=== PATIENT | female | born 1960 | race Hispanic/Latino ===

== ENCOUNTER 2017-03-25 09:57 | Emergency (ER) | payer OTHER, MEDICARE ==
[2017-03-25 09:57] VITALS: BMI 19.1
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
[2017-03-25 10:09] VITALS: O2SAT 95
[2017-03-25] MEDS ORDERED: Morphine 4 mg/ml ISec IVP STA (10:20)
[2017-03-25] MEDS ORDERED: Sodium Chloride 0.9% 1,000 ML IV SCH (10:30)
[2017-03-25 10:36] LABS: BASO # 0.01 K/mm3 (0.0-2.0); BASO % 0.1 % (0.0-3.0); EOS # 0.1 (0.0-0.7); EOS % 1.2 % (1.5-5.0); GRAN # 7.03 (1.4-6.5); GRAN % 76.1 % (50.0-68.0); HEMATOCRIT 34.4 % (36.0-48.0); LYMPH # 1.7 (1.2-3.4); LYMPH % 18.9 % (22.0-35.0); MEAN CELL VOLUME 99.1 fl (80.0-105.0); MEAN CORPUSCULAR HEMOGLOBIN 33.1 pg (25.0-35.0); MEAN CORPUSCULAR HGB CONC 33.4 g/dl (31.0-37.0); MEAN PLATELET VOLUME 10.1 fl (7.0-11.0); MONO # 0.3 (0.1-0.6); MONO % 3.7 % (1.0-6.0); RED CELL DISTRIBUTION WIDTH 12.1 % (11.5-14.5); WHITE BLOOD COUNT 9.2 10^3/ul (4.5-11.0)
[2017-03-25 10:45] LABS: ALB/GLOB RATIO 1.2 (1.1-1.8); ALKALINE PHOSPHATASE 81 U/L (38-126); ALT/SGPT 30 U/L (7-56); AST/SGOT 31 U/L (14-36); BILIRUBIN,TOTAL 0.7 mg/dL (0.2-1.3); BLOOD UREA NITROGEN 14 mg/dL (7-21); CALCIUM 9.4 mg/dL (8.4-10.5); CARBON DIOXIDE 30 mmol/L (21-33); CHLORIDE 102 mmol/L (98-107); GFR AFRICAN-AMERICAN > 60; GLUCOSE,RANDOM 104 mg/dL (70-110); POTASSIUM 3.1 mmol/L (3.6-5.0); SODIUM 140 mmol/L (132-148); TOTAL PROTEIN 8.1 g/dL (5.8-8.3)
[2017-03-25 10:56] LABS: TROPONIN I < 0.01 ng/mL
[2017-03-25 11:02] LABS: INR 1.19 (0.93-1.08); PARTIAL THROMBOPLASTIN TIME 30.3 Seconds (25.1-36.5)
[2017-03-25] MEDS ORDERED: DiphenhydrAMINE 50 mg/ml Inj IVP STA (11:09)
[2017-03-25] MEDS ORDERED: Iodixanol 320 MG/ML 100 ML BOTTLE IV ONE (11:14)
[2017-03-25] MEDS ORDERED: Potassium Chloride 20 mEq ER Tab PO STA (11:32)
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
[2017-03-25 12:57] LABS: PH,URINE 6.5 (4.7-8.0); URINE BILIRUBIN NEGATIVE (NEGATIVE); URINE BLOOD NEGATIVE (NEGATIVE); URINE GLUCOSE (UA) NEGATIVE (NEGATIVE); URINE KETONE NEGATIVE (NEGATIVE); URINE LEUKOCYTE ESTERASE NEGATIVE Leu/uL (NEGATIVE); URINE PROTEIN NEGATIVE mg/dL (<30 mg/dL); URINE UROBILINOGEN 0.2 E.U./dL (<1 E.U./dL)
[2017-03-25 12:59] LABS: URINE APPEARANCE CLEAR (CLEAR); URINE COLOR YELLOW (YELLOW)
[2017-03-25 13:27] VITALS: BP 102/57; PULSE 90; RESP 19; TEMP 98.3
--- NOTE | 2017-03-25 17:21 | CARD ---
APPROVED REPORT EKG Measurement Heart [id number] <Conclusion> Sinus rhythm with occasional premature ventricular complexes Nonspecific T wave abnormality Abnormal ECG
== END 2017-03-25 14:01 | disposition home or self-care (01) ==
LOC: ED 09:57
DX: F07.81 Postconcussional syndrome (principal); J18.9 Pneumonia, unspecified organism; K59.00 Constipation, unspecified; M79.1 Myalgia; R51 Headache; M50.30 Other cervical disc degeneration, unspecified cervical region; E78.5 Hyperlipidemia, unspecified; Z91.013 Allergy to seafood
CPT/HCPCS: 70450; 71260; 72125; 74177; 80053; 81003; 82550; 83615; 84484; 85025; 85610; 85730; 93005; 96374; 96375; 99284; J1200; J2270; J7040; Q9967

== ENCOUNTER 2017-06-24 16:09 | Inpatient (IN) | payer MEDICARE, OTHER ==
[2017-06-24] MEDS ORDERED: Sodium Chloride 0.9% 1,000 ML IV STA (16:42)
--- NOTE | 2017-06-24 16:49 | ED PDOC ---
Arrival/HPI - General Chief Complaint: Abdominal Pain Time Seen by Provider: 06/24/17 16:28 - History of Present Illness Narrative History of Present Illness (Text): you were treated in the ED today for hx of hirsprung's and you stated have had c -diff colitis in the past and was having diarrhea/abdomen cramping with your gastroenterology Dr. Cardenas putting you on an antibiotic about 3wks ago with persistent loose stools without blood but otherwise without any nausea/vomiting/ headache/dizziness/difficulty breathing/chest pain/numbness/tingling/loss of limb function/pain with urination. 06/24/17 16:45 Time/Duration: > week (3) Symptom Onset: Gradual Symptom Course: Unchanged, Intermittent Quality: Aching Severity Level: 1 Activities at Onset: Rest Context: Sitting Past Medical History - Provider Review Nursing Documentation Reviewed: Yes - Travel History Have you recently traveled outside [place] w/in the past 3 mons?: No - Infectious Disease Hx of Infectious Diseases: None - Tetanus Immunization Tetanus Immunization: Up to Date - Cardiac Hx Hyperlipemia: Yes - Pulmonary Hx Respiratory Disorders: No - Neurological Hx Neurological Disorder: No - HEENT Hx HEENT Disorder: No - Renal Hx Renal Disorder: No - Endocrine/Metabolic Hx Endocrine Disorders: No - Hematological/Oncological Hx Blood Disorders: No - Integumentary Hx Dermatological Disorder: No - Musculoskeletal/Rheumatological Hx Back Pain: Yes - Gastrointestinal Hx Gastrointestinal Disorders: Yes Other/Comment: UC - Genitourinary/Gynecological Hx Genitourinary Disorders: Yes Hx Uterine Cancer: Yes - Psychiatric Hx Anxiety: Yes Hx Post Traumatic Stress Disorder: Yes Hx Substance Use: No - Surgical History Other/Comment: colon polyp removed - Suicidal Assessment Feels Threatened In Home Enviroment: No Family/Social History - Physician Review Nursing Documentation Reviewed: Yes Family/Social History: No Known Family HX Smoking Status: Current Some Days Smoker Hx Alcohol Use: No Hx Substance Use: No Hx Substance Use Treatment: No Allergies/Home Meds Allergies/Adverse Reactions: Allergies seafood Allergy (Uncoded 06/24/17 16:19) ITCHING Home Medications: Home Meds Medication Instructions Recorded Confirmed Lorazepam [Ativan] 1 mg PO TID PRN 07/15/12 06/24/17 Aspirin [Aspirin Chewable] 81 mg PO DAILY 03/25/17 06/24/17 Atorvastatin [Lipitor] 20 mg PO DAILY 03/25/17 06/24/17 clonazePAM [clonAZEPAM] 1 mg PO QID 03/25/17 06/25/17 Cyclobenzaprine [Cyclobenzaprine 10 mg PO DAILY 06/25/17 06/25/17 HCl] HYDROmorphone [Dilaudid] 4 mg PO TID 06/25/17 06/25/17 Hydromorphone HCl [Exalgo] 16 mg PO DAILY 06/25/17 06/25/17 Omeprazole 40 mg PO DAILY 06/25/17 06/25/17 Sertraline [Zoloft] 100 mg PO DAILY 06/25/17 06/25/17 Zolpidem [Ambien] 20 mg PO HS 06/25/17 06/25/17 Review of Systems - Review of Systems Constitutional: Normal Eyes: Normal ENT: Normal Respiratory: Normal Cardiovascular: Normal Gastrointestinal: Abdominal Pain, Stool Changes Genitourinary Female: Normal Musculoskeletal: Normal Skin: Normal Neurological: Normal Endocrine: Normal Hemo/Lymphatic: Normal Psychiatric: Normal Physical Exam Vital Signs Reviewed: Yes Vital Signs Temp Pulse Resp BP Pulse Ox 06/24/17 16:22 97.9 F 88 19 115/82 97 06/24/17 16:20 97.9 F 87 18 115/82 97 Temperature: Afebrile Blood Pressure: Normal Pulse: Regular Respiratory Rate: Normal Appearance: Positive for: Well-Appearing, Non-Toxic, Comfortable Pain Distress: None Mental Status: Positive for: Alert and Oriented X 3 - Systems Exam Head: Present: Atraumatic, Normocephalic Pupils: Present: PERRL Extroacular Muscles: Present: EOMI Conjunctiva: Present: Normal Ears: Present: Normal Mouth: Present: Moist Mucous Membranes Pharnyx: Present: Normal Nose (External): Present: Atraumatic Nose (Internal): Present: Normal Inspection Neck: Present: Normal Range of Motion Respiratory/Chest: Present: Clear to Auscultation, Good Air Exchange Cardiovascular: Present: Regular Rate and Rhythm Abdomen: No: Tenderness, Distention, Normal Bowel Sounds, Peritoneal Signs, Rebound, Guarding, McBurney's Point Tender, Rovsing's Sign Present, Hernias, Feeding Tubes, Ostomy Tubes, Mass/Organomegaly, Scars, Other Back: Present: Normal Inspection Upper Extremity: Present: Normal Inspection Lower Extremity: Present: Normal Inspection Neurological: Present: GCS=15, CN II-XII Intact, Speech Normal, Motor Func Grossly Intact Skin: Present: Warm, Normal Color Psychiatric: Present: Alert, Oriented x 3, Normal Insight, Normal Concentration Medical Decision Making ED Course and Treatment: 06/24/17 16:49 you were sent by Dr. Andres [facility] gastroenterology [phone] to be treated in the ED today for hx of hirsprung's and you stated have had c-diff colitis in the past and was having diarrhea/abdomen cramping with your gastroenterology Dr. Cardenas putting you on an antibiotic about 3wks ago with persistent loose stools without blood but otherwise without any nausea/vomiting/headache/ dizziness/difficulty breathing/chest pain/numbness/tingling/loss of limb function/pain with urination. You were otherwise breathing easily, smiling and talking with your , good strength/sensation, walking easily, clear lungs , no abdomen tenderness, no fever temp 97.9, stable heart rate 88, stable breathing rate 19, excellent oxygen level 97% room air, stable blood pressure 115/82 which we recommend repeat in 2-3 days primary care office to determine further treatment, you have blood tests no infection count 8.8, stable blood level hemoglobin 12/platelets 206, stable chemistry, heart blood test negative less than 0.01, urine test no clear sign of infection trace leukocytes, radiology ct abdomen/pelvis pending, ECG normal sinus rhythm, intravenous fluids, observation done in the ED with improvement. 06/24/17 18:41 06/24/17 18:42 signed out to life [facility] ED physician Dr. Edmond to fu CT a/p and disposition Reassessment Condition: Re-examined, Improved - Lab Interpretations Microbiology Results: Microbiology Results 06/26/17 12:00 Blood Blood Culture - Preliminary NO GROWTH AFTER 3 DAYS 06/26/17 12:30 Blood Blood Culture - Preliminary NO GROWTH AFTER 3 DAYS 06/24/17 18:11 Stool Stool Culture - Final NO SALMONELLA, SHIGELLA OR CAMPYLOBACTER ISOLATED. 06/24/17 18:11 Stool C. difficile Antigen & Toxin A,B (M - Final 06/24/17 18:11 Urine,Clean Catch Urine Culture - Final Klebsiella Pneumoniae Ssp Pneu Lab Results: 06/26/17 06:20 06/26/17 06:20 Lab Results 06/26/17 06:20: Sodium 145, Potassium 3.7, Chloride 110 H, Carbon Dioxide 26, Anion Gap 13, BUN 10, Creatinine 0.8, Est GFR ( Amer) > 60, Est GFR (Non- Af Amer) > 60, Random Glucose 91, Calcium 9.2, Total Bilirubin 0.2, AST 43 H, ALT 28, Alkaline Phosphatase 72, Total Protein 7.2, Albumin 4.0, Globulin 3.3, Albumin/Globulin Ratio 1.2 06/26/17 06:20: WBC 5.7 D, RBC 3.63, Hgb 11.7 L, Hct 35.4 L, MCV 97.5, MCH 32.2 , MCHC 33.1, RDW 12.6, Plt Count 145, MPV 10.1, Gran % 83.9 H, Lymph % (Auto) 13.8 L, [place] % (Auto) 1.8, Eos % (Auto) 0.5 L, Baso % (Auto) 0.0, Gran # 4.76, Lymph # (Auto) 0.8 L, [place] # (Auto) 0.1, Eos # (Auto) 0.0, Baso # (Auto) 0.00 06/24/17 21:53: pO2 57 H, VBG pH 7.26 L, VBG pCO2 62.0 H, VBG HCO3 27.8, VBG Total CO2 29.7 H, VBG O2 Sat (Calc) 90.8 H, VBG Base Excess -0.6 L, VBG Potassium 3.5 L, Glucose 76, Lactate 1.2, FiO2 21.0, Sodium 140.0, Chloride 108.0 H, Venous Blood Potassium 3.5 L 06/24/17 18:11: Urine Color Yellow, Urine Appearance Clear, Urine pH 6.0, Ur Specific [place] <= 1.005, Urine Protein Negative, Urine Glucose (UA) Negative, Urine Ketones Negative, Urine Blood Negative, Urine Nitrate Negative, Urine Bilirubin Negative, Urine Urobilinogen 0.2, Ur Leukocyte Esterase Trace H, Urine RBC Negative, Urine WBC 1 - 3, Ur Epithelial Cells 3 - 4 06/24/17 17:40: Sodium 143, Potassium 3.7, Chloride 102, Carbon Dioxide 29, Anion Gap 16, BUN 13, Creatinine 0.8, Est GFR ( Amer) > 60, Est GFR (Non- Af Amer) > 60, Random Glucose 70, Calcium 10.2, Magnesium 2.2, Total Bilirubin 0.2, AST 39 H D, ALT 32, Alkaline Phosphatase 71, Lactate Dehydrogenase 473, Total Creatine Kinase 66, Troponin I < 0.01, Total Protein 8.8 H, Albumin 4.8, Globulin 4.0, Albumin/Globulin Ratio 1.2, Lipase 120 06/24/17 17:40: PT 11.4, INR 1.00, APTT 31.0 06/24/17 17:40: WBC 8.8, RBC 3.91, Hgb 12.7, Hct 38.0, MCV 97.2, MCH 32.5, MCHC 33.4, RDW 12.7, Plt Count 206, MPV 10.4, Gran % 65.1, Lymph % (Auto) 31.1, [place] % (Auto) 2.4, Eos % (Auto) 1.3 L, Baso % (Auto) 0.1, Gran # 5.73, Lymph # (Auto ) 2.7, [place] # (Auto) 0.2, Eos # (Auto) 0.1, Baso # (Auto) 0.01 I have reviewed the lab results: Yes - RAD Interpretation Radiology Orders: 06/24/17 18:26 ABD & PELVIS W/O PO OR IV CONT [CT] Stat - Medication Orders Current Medication Orders: Discontinued Medications Acetaminophen (Tylenol 325mg Tab) 650 mg PO Q4H PRN PRN Reason: Pain, Mild (1-3) Acetaminophen/Butalbital/Caffeine (Fioricet) 1 tab PO Q4H PRN PRN Reason: Migraine headache Last Admin: 06/26/17 12:35 Dose: 1 tab [facility] Pain Assessment Document 06/26/17 12:35 YJ (Rec: 06/26/17 12:35 Y [id number]) Pain Reassessment Is this a pain reassessment? No Sleep Is patient sleeping during reassessment? No Presence of Pain Presence of Pain Yes Pain Scale Used Pain Scale Used Numeric Description Intensity of Pain at present 10 Re-Assess: [facility] Pain Assessment Document 06/26/17 13:35 YJ (Rec: 06/26/17 16:59 YJ [email or web address]) Pain Reassessment Is this a pain reassessment? Yes Sleep Is patient sleeping during reassessment? No Presence of Pain Presence of Pain Yes Acetaminophen/Butalbital/Caffeine (Fioricet) 1 tab PO ONCE ONE Stop: 06/26/17 13:48 Last Admin: 06/26/17 13:57 Dose: 1 tab [facility] Pain Assessment Document 06/26/17 13:57 Y (Rec: 06/26/17 13:[id number] Pain Reassessment Is this a pain reassessment? No Sleep Is patient sleeping during reassessment? No Presence of Pain Presence of Pain Yes Pain Scale Used Pain Scale Used Numeric Description Intensity of Pain at present 10 Re-Assess: [facility] Pain Assessment Document 06/26/17 14:57 Y (Rec: 06/26/17 16:59 [email or web address] Reassessment Is this a pain reassessment? Yes Sleep Is patient sleeping during reassessment? Yes Acetaminophen/Butalbital/Caffeine (Fioricet) 2 tab PO Q8 [facility] Acetaminophen/Butalbital/Caffeine (Fioricet) 2 tab PO Q8 PRN PRN Reason: Migraine headache Last Admin: 06/26/17 19:46 Dose: 2 tab [facility] Pain Assessment Document 06/26/17 19:46 SES (Rec: 06/26/17 19:46 SES [id number]) Pain Reassessment Is this a pain reassessment? No Sleep Is patient sleeping during reassessment? No Presence of Pain Presence of Pain Yes Location Pain Location [employer] Specialist Description Acceptable Level of Pain 10 Pain Behavior Guarding Alleviating Factors/Management Medication Techniques Alleviating Factors Medication Re-Assess: [facility] Pain Assessment Document 06/26/17 20:46 KP (Rec: 06/26/17 22:20 KP [id number]) Pain Reassessment Is this a pain reassessment? Yes Sleep Is patient sleeping during reassessment? No Presence of Pain Presence of Pain No Acetaminophen/Butalbital/Caffeine (Fioricet) 2 tab PO Q8 [facility] Last Admin: 06/27/17 06:49 Dose: 2 tab [facility] Pain Assessment Document 06/27/17 06:49 KP (Rec: 06/27/17 06:49 KP [id number]) Pain Reassessment Is this a pain reassessment? No Sleep Is patient sleeping during reassessment? No Presence of Pain Presence of Pain Yes Re-Assess: [facility] Pain Assessment Document 06/27/17 07:49 MJO (Rec: 06/27/17 08:14 MJO [id number]) Pain Reassessment Is this a pain reassessment? Yes Sleep Is patient sleeping during reassessment? No Presence of Pain Presence of Pain No Acetaminophen/Butalbital/Caffeine (Fioricet) 2 tab PO STAT STA Stop: 06/27/17 01:14 Last Admin: 06/27/17 01:32 Dose: 2 tab [facility] Pain Assessment Document 06/27/17 01:32 KP (Rec: 06/27/17 01:32 KP [id number]) Pain Reassessment Is this a pain reassessment? No Sleep Is patient sleeping during reassessment? No Presence of Pain Presence of Pain Yes Re-Assess: [facility] Pain Assessment Document 06/27/17 02:32 KP (Rec: 06/27/17 02:34 KP CP) Pain Reassessment Is this a pain reassessment? Yes Sleep Is patient sleeping during reassessment? No Presence of Pain Presence of Pain No Aspirin (Aspirin Chewable) 81 mg PO DAILY [facility] Last Admin: 06/27/17 09:37 Dose: 81 mg Atorvastatin Calcium (Lipitor) 20 mg PO DAILY [facility] Last Admin: 06/27/17 09:37 Dose: 20 mg Diphenhydramine HCl (Benadryl) 50 mg IVP ONCE ONE Stop: 06/25/17 00:52 Last Admin: 06/25/17 02:28 Dose: Not Given Non-Admin Reason: Patient Refused IVP Administration Document 06/25/17 02:28 MJ (Rec: 06/25/17 02:28 MJ [id number]) Charges for Administration # of IVP Administrations 0 Hydromorphone HCl (Dilaudid) 4 mg PO TID PRN PRN Reason: Pain, moderate (4-7) Last Admin: 06/26/17 21:34 Dose: 4 mg [facility] Pain Assessment Document 06/26/17 21:34 KP (Rec: 06/26/17 21:34 KP [id number]) Pain Reassessment Is this a pain reassessment? No Sleep Is patient sleeping during reassessment? No Presence of Pain Presence of Pain Yes Re-Assess: [facility] Pain Assessment Document 06/26/17 22:34 KP (Rec: 06/27/17 02:33 [id number] Pain Reassessment Is this a pain reassessment? Yes Sleep Is patient sleeping during reassessment? No Presence of Pain Presence of Pain No Sodium Chloride (Sodium Chloride 0.9%) 1,000 mls @ 999 mls/hr IV .Q1H1M STA Stop: 06/24/17 17:42 Last Admin: 06/24/17 18:06 Dose: 999 mls/hr eMAR Start Stop Document 06/24/17 18:06 OCS (Rec: 06/24/17 18:06 OCS [id number]) Intravenous Solution Start Date 06/24/17 Start Time 18:06 End Date 06/24/17 End time 19:07 Total Infusion Time 61 Sodium Chloride (Sodium Chloride 0.9%) 1,000 mls @ 100 mls/hr IV .Q10H STA Stop: 06/25/17 08:33 Last Admin: 06/25/17 05:18 Dose: 100 mls/hr eMAR Start Stop Document 06/25/17 05:18 MJ (Rec: 06/25/17 05:19 MJ [id number]) Intravenous Solution Start Date 06/25/17 Start Time 05:19 Ceftriaxone Sodium (Rocephin 1 Gram Ivpb) 1 gm in 100 mls @ 100 mls/hr IVPB DAILY [facility] PRN Reason: Protocol Stop: 07/05/17 17:29 Last Admin: 06/26/17 19:02 Dose: 100 mls/hr eMAR Start Stop Document 06/26/17 19:02 YJ (Rec: 06/26/17 19:02 YJ [id number]) Intravenous Solution Start Date 06/26/17 Start Time 19:02 End Date 06/26/17 End time 20:02 Total Infusion Time 60 Cefazolin Sodium (Ancef 1gm In Ns) 1 gm in 100 mls @ 100 mls/hr IVPB Q8 [facility] PRN Reason: Protocol Last Admin: 06/27/17 09:38 Dose: Lactobacillus Acidophilus (Bacid Acidophilus) 1 cap PO BID [facility] Last Admin: 06/27/17 09:37 Dose: 1 cap Lorazepam (Ativan) 1 mg PO TID PRN; Protocol PRN Reason: Anxiety Last Admin: 06/27/17 09:49 Dose: 1 mg Behavioural Document 06/27/17 09:49 MJO (Rec: 06/27/17 09:49 MJO [id number]) Maintenance Maintenance Dose No Nonmedicinal Nonmedicinal Interventions Redirect Therapeutic Communication Activity Give food/fluids See nurse's notes Behavior Behavior for Medication: Anxiety Re-Assess: Reassess Psych Meds Document 06/27/17 10:49 MJO (Rec: 06/27/17 11:07 MJO [id number]) Reassess Psych Med Ineffective-LIP notifed Nicotine (Nicoderm Cq) 1 patch TD DAILY [facility] Nicotine (Nicoderm Cq) 1 patch TD STAT STA Stop: 06/25/17 02:15 Last Admin: 06/25/17 02:27 Dose: 1 patch MAR Transdermal Patch Site Document 06/25/17 02:27 MJ (Rec: 06/25/17 02:27 MJ [id number]) Transdermal Patch Site Transdermal Patch Site Right Shoulder Re-Assess: MAR Transdermal Patch Removal Document 06/25/17 14:27 Y (Rec: 06/25/17 20:14 [id number] Transdermal Patch Removal Removal of Transdermal Patch done? Yes Nicotine (Nicoderm Cq) 1 patch TD DAILY [facility] Last Admin: 06/27/17 09:38 Dose: Not Given Non-Admin Reason: Patient Refused Nicotine (Nicoderm Cq) 1 patch TD STAT STA Stop: 06/25/17 17:01 Last Admin: 06/25/17 17:43 Dose: 1 patch MAR Transdermal Patch Site Document 06/25/17 17:43 YJ (Rec: 06/25/17 17:43 [id number]) Transdermal Patch Site Transdermal Patch Site Right Outer Upper Arm Ondansetron HCl (Zofran Inj) 4 mg IVP Q6H PRN PRN Reason: Nausea/Vomiting Pantoprazole Sodium (Protonix Inj) 40 mg IVP DAILY [facility] Last Admin: 06/26/17 09:34 Dose: 40 mg IVP Administration Document 06/26/17 09:34 Y (Rec: 06/26/17 09:34 [id number] Charges for Administration # of IVP Administrations 1 Potassium Chloride (K-Dur 20 Meq Er Tab) 20 meq PO ONCE ONE Stop: 06/27/17 08:14 Last Admin: 06/27/17 08:19 Dose: 20 meq Sertraline HCl (Zoloft) 100 mg PO DAILY [facility] Last Admin: 06/27/17 09:37 Dose: 100 mg Sumatriptan Succinate (Imitrex Inj) 6 mg SC ONCE ONE Stop: 06/26/17 11:39 Last Admin: 06/26/17 16:59 Dose: Not Given Non-Admin Reason: Patient Refused Zolpidem Tartrate (Ambien) 20 mg PO HS PRN; Protocol PRN Reason: Insomnia Zolpidem Tartrate (Ambien) 10 mg PO HS PRN; Protocol PRN Reason: Insomnia Last Admin: 06/26/17 21:34 Dose: 10 mg Behavioural Document 06/26/17 21:34 (Rec: 06/26/17 21:34 [id number]) Maintenance Maintenance Dose No Nonmedicinal Nonmedicinal Interventions Redirect Therapeutic Communication Behavior Behavior for Medication: Anxiety Re-Assess: Reassess Psych Meds Document 06/26/17 22:34 (Rec: 06/27/17 02:33 [id number]) Reassess Psych Med Effective Disposition/Present on Arrival - Present on Arrival Any Indicators Present on Arrival: No History of DVT/PE: No History of Uncontrolled Diabetes: No Urinary Catheter: No History of Decub. Ulcer: No History Surgical Site Infection Following: None - Disposition Have Diagnosis and Disposition been Completed?: Yes Diagnosis: Small bowel obstruction Disposition: HOSPITALIZED Disposition Time: :25 Patient Plan: Admission Condition: GOOD
[2017-06-24 17:51] LABS: BASO # 0.01 K/mm3 (0.0-2.0); BASO % 0.1 % (0.0-3.0); EOS # 0.1 (0.0-0.7); EOS % 1.3 % (1.5-5.0); GRAN # 5.73 (1.4-6.5); GRAN % 65.1 % (50.0-68.0); HEMOGLOBIN 12.7 g/dL (12.0-16.0); LYMPH # 2.7 (1.2-3.4); LYMPH % 31.1 % (22.0-35.0); MEAN CELL VOLUME 97.2 fl (80.0-105.0); MEAN CORPUSCULAR HEMOGLOBIN 32.5 pg (25.0-35.0); MEAN CORPUSCULAR HGB CONC 33.4 g/dl (31.0-37.0); MEAN PLATELET VOLUME 10.4 fl (7.0-11.0); MONO # 0.2 (0.1-0.6); MONO % 2.4 % (1.0-6.0); RBC 3.91 10^6/uL (3.5-6.1); RED CELL DISTRIBUTION WIDTH 12.7 % (11.5-14.5); WHITE BLOOD COUNT 8.8 10^3/ul (4.5-11.0)
[2017-06-24 18:05] LABS: ALB/GLOB RATIO 1.2 (1.1-1.8); ALBUMIN 4.8 g/dL (3.0-4.8); ALT/SGPT 32 U/L (7-56); AST/SGOT 39 U/L (14-36); BLOOD UREA NITROGEN 13 mg/dL (7-21); CALCIUM 10.2 mg/dL (8.4-10.5); GFR AFRICAN-AMERICAN > 60; GFR NON-AFRICAN AMERICAN > 60; LIPASE 120 U/L (23-300)
[2017-06-24 18:10] LABS: PROTHROMBIN TIME 11.4 SECONDS (9.4-12.5)
[2017-06-24 18:16] LABS: TROPONIN I < 0.01 ng/mL
[2017-06-24 18:30] LABS: URINE BILIRUBIN NEGATIVE (NEGATIVE); URINE BLOOD NEGATIVE (NEGATIVE); URINE GLUCOSE (UA) NEGATIVE (NEGATIVE); URINE LEUKOCYTE ESTERASE TRACE Leu/uL (NEGATIVE); URINE PROTEIN NEGATIVE mg/dL (<30 mg/dL); URINE UROBILINOGEN 0.2 E.U./dL (<1 E.U./dL)
[2017-06-24] MEDS ORDERED: Iohexol 350 MG/100 ML VIAL ONE (18:32)
[2017-06-24 18:34] LABS: URINE APPEARANCE CLEAR (CLEAR); URINE COLOR YELLOW (YELLOW)
[2017-06-24 18:39] LABS: URINE RBC NEGATIVE /hpf (0-2)
--- NOTE | 2017-06-24 20:32 | CT ---
EXAM: CT Abdomen and Pelvis Without Intravenous Contrast EXAM DATE/TIME: 06/24/2017 6:26 PM CLINICAL HISTORY: 56 years old, female; Pain; Abdominal pain; Generalized; Prior surgery; Surgery date: 6+ months; Surgery type: HX appendectomy, HX colon polyp removed; Patient HX: HX uterine ca; Additional info: 56yof, HX hirsprungs, with abdomen pain/cramping. TECHNIQUE: Axial computed tomography images of the abdomen and pelvis without intravenous contrast. All CT scans at this facility use one or more dose reduction techniques, viz.: automated exposure control; ma/kV adjustment per patient size (including targeted exams where dose is matched to indication; i.e. head); or iterative reconstruction technique. Coronal and sagittal reformatted images were created and reviewed. COMPARISON: Prior CT abdomen and pelvis of 2017-03-25 FINDINGS: LOWER THORAX: Scattered, subtle tree in bud opacities in the right lung base. Findings could represent a mild infectious bronchiolitis/pneumonia. ABDOMEN: LIVER: No acute abnormality of the liver identified. GALLBLADDER AND BILE DUCTS: No CT evidence of acute cholecystitis. No evidence of significant biliary ductal dilatation. PANCREAS: No CT evidence of acute pancreatitis. SPLEEN: No acute abnormality of the spleen identified. ADRENALS: No acute abnormality of the adrenal glands identified. KIDNEYS AND URETERS: No acute abnormality of the kidneys seen. STOMACH AND BOWEL: Mild small bowel dilatation. Multiple fluid-filled and mildly dilated mostly proximal small bowel loops are seen. The mid and distal small bowel loops appear mildly, diffusely decompressed. Findings could represent a mild small bowel obstruction versus an ileus. Transition point is not definitely seen, however. Stool noted in the rectum, suggestive of mild fecal retention/constipation. Otherwise, no significant abnormality of the bowel is identified. No findings to suggest significant focal enteritis small bowel. No evidence of diffuse fecal retention, diffuse colitis, or significant large bowel obstruction. No evidence of pneumatosis intestinalis. APPENDIX: Normal appendix is not seen, and there is a reported history of previous appendectomy. PELVIS: BLADDER: No acute abnormality of the bladder identified. REPRODUCTIVE:No acute abnormality of the reproductive organs is seen. No acute abnormality of the uterus identified. No evidence of large adnexal masses. ABDOMEN and PELVIS: INTRAPERITONEAL SPACE: No evidence of free intraperitoneal air or fluid. BONES/JOINTS: Marked degenerative disc disease at L5-S1. No acute fractures or other acute bony abnormality noted. SOFT TISSUES: No acute abnormality of the visualized soft tissues is seen. VASCULATURE: No evidence of abdominal aortic aneurysm. No evidence of periaortic hemorrhage. LYMPH NODES: No evidence of diffuse lymphadenopathy. IMPRESSION: - Mild small bowel dilatation. This could be due to a mild small bowel obstruction versus an ileus. Please see above for a full description. - Findings in the right lung base which could represent a mild infectious bronchiolitis/pneumonia. - Otherwise, no evidence of significant acute process. - See above for remaining findings.
--- NOTE | 2017-06-24 20:35 | CARD ---
APPROVED REPORT EKG Measurement Heart [id number] NM [id number] [id number] <Conclusion> Normal sinus rhythm Normal ECG
--- NOTE | 2017-06-24 21:12 | ED PDOC ---
Physical Exam Vital Signs Temp Pulse Resp BP Pulse Ox 06/24/17 16:22 97.9 F 88 19 115/82 97 06/24/17 16:20 97.9 F 87 18 115/82 97 Medical Decision Making ED Course and Treatment: 06/24/17 19:00 Case endorsed to me by Dr. Blanco, pending CT Abdomen and Pelvis, re- evaluation, and final disposition. 06/24/17 20:31 Reviewed radiology, CT Abdomen and Pelvis shows: LOWER THORAX: Scattered, subtle tree in bud opacities in the right lung base. Findings could represent a mild infectious bronchiolitis/pneumonia. ABDOMEN: LIVER: No acute abnormality of the liver identified. GALLBLADDER AND BILE DUCTS: No CT evidence of acute cholecystitis. No evidence of significant biliary ductal dilatation. PANCREAS: No CT evidence of acute pancreatitis. SPLEEN: No acute abnormality of the spleen identified. ADRENALS: No acute abnormality of the adrenal glands identified. KIDNEYS AND URETERS: No acute abnormality of the kidneys seen. STOMACH AND BOWEL: Mild small bowel dilatation. Multiple fluid-filled and mildly dilated mostly proximal small bowel loops are seen. The mid and distal small bowel loops appear mildly, diffusely decompressed. Findings could represent a mild small bowel obstruction versus an ileus. Transition point is not definitely seen, however. Stool noted in the rectum, suggestive of mild fecal retention/constipation. Otherwise, no significant abnormality of the bowel is identified. No findings to suggest significant focal enteritis small bowel. No evidence of diffuse fecal retention, diffuse colitis, or significant large bowel obstruction. No evidence of pneumatosis intestinalis. APPENDIX: Normal appendix is not seen, and there is a reported history of previous appendectomy. PELVIS: BLADDER: No acute abnormality of the bladder identified. REPRODUCTIVE:No acute abnormality of the reproductive organs is seen. No acute abnormality of the uterus identified. No evidence of large adnexal masses. ABDOMEN and PELVIS: INTRAPERITONEAL SPACE: No evidence of free intraperitoneal air or fluid. BONES/JOINTS: Marked degenerative disc disease at L5-S1. No acute fractures or other acute bony abnormality noted. SOFT TISSUES: No acute abnormality of the visualized soft tissues is seen. VASCULATURE: No evidence of abdominal aortic aneurysm. No evidence of periaortic hemorrhage. LYMPH NODES: No evidence of diffuse lymphadenopathy. IMPRESSION: - Mild small bowel dilatation. This could be due to a mild small bowel obstruction versus an ileus. Please see above for a full description. - Findings in the right lung base which could represent a mild infectious bronchiolitis/pneumonia. - Otherwise, no evidence of significant acute process. - See above for remaining findings. 06/24/17 21:[address] Alcazar, who is aware and agrees with plan. Accepts pt in to her service. Pt will go to [facility] observation for small bowel obstruction. president and chief executive officer bi consultant. 06/24/17 21:32 Case discussed with surgical training specialist bi consultant, who is aware and agrees with plan. - Lab Interpretations Lab Results: 06/24/17 17:40 06/24/17 17:40 Lab Results 06/24/17 18:11: Urine Color Yellow, Urine Appearance Clear, Urine pH 6.0, Ur Specific [place] <= 1.005, Urine Protein Negative, Urine Glucose (UA) Negative, Urine Ketones Negative, Urine Blood Negative, Urine Nitrate Negative, Urine Bilirubin Negative, Urine Urobilinogen 0.2, Ur Leukocyte Esterase Trace H, Urine RBC Negative, Urine WBC 1 - 3, Ur Epithelial Cells 3 - 4 06/24/17 17:40: Sodium 143, Potassium 3.7, Chloride 102, Carbon Dioxide 29, Anion Gap 16, BUN 13, Creatinine 0.8, Est GFR ( Amer) > 60, Est GFR (Non- Af Amer) > 60, Random Glucose 70, Calcium 10.2, Magnesium 2.2, Total Bilirubin 0.2, AST 39 H D, ALT 32, Alkaline Phosphatase 71, Lactate Dehydrogenase 473, Total Creatine Kinase 66, Troponin I < 0.01, Total Protein 8.8 H, Albumin 4.8, Globulin 4.0, Albumin/Globulin Ratio 1.2, Lipase 120 06/24/17 17:40: PT 11.4, INR 1.00, APTT 31.0 06/24/17 17:40: WBC 8.8, RBC 3.91, Hgb 12.7, Hct 38.0, MCV 97.2, MCH 32.5, MCHC 33.4, RDW 12.7, Plt Count 206, MPV 10.4, Gran % 65.1, Lymph % (Auto) 31.1, [place] % (Auto) 2.4, Eos % (Auto) 1.3 L, Baso % (Auto) 0.1, Gran # 5.73, Lymph # (Auto ) 2.7, [place] # (Auto) 0.2, Eos # (Auto) 0.1, Baso # (Auto) 0.01 - RAD Interpretation Radiology Orders: 06/24/17 18:26 ABD & PELVIS W/O PO OR IV CONT [CT] Stat Director Home: Radiologist - Medication Orders Current Medication Orders: Acetaminophen (Tylenol 325mg Tab) 650 mg PO Q4H PRN PRN Reason: Pain, Mild (1-3) Sodium Chloride (Sodium Chloride 0.9%) 1,000 mls @ 100 mls/hr IV .Q10H STA Stop: 06/25/17 08:33 Discontinued Medications Sodium Chloride (Sodium Chloride 0.9%) 1,000 mls @ 999 mls/hr IV .Q1H1M STA Stop: 06/24/17 17:42 Last Admin: 06/24/17 18:06 Dose: 999 mls/hr eMAR Start Stop Document 06/24/17 18:06 OCS (Rec: 06/24/17 18:06 OCS [id number]) Intravenous Solution Start Date 06/24/17 Start Time 18:06 End Date 06/24/17 End time 19:07 Total Infusion Time 61 Disposition/Present on Arrival - Present on Arrival Any Indicators Present on Arrival: No History of DVT/PE: No History of Uncontrolled Diabetes: No Urinary Catheter: No History of Decub. Ulcer: No History Surgical Site Infection Following: None - Disposition Have Diagnosis and Disposition been Completed?: Yes Diagnosis: Small bowel obstruction Disposition: HOSPITALIZED Disposition Time: 21:30 Condition: GOOD
[2017-06-24 21:57] LABS: VENOUS BLOOD GAS BASE EXCESS -0.6 mmol/L (0.0-2.0); VENOUS BLOOD GAS PO2 57 mm/Hg (30-55); VENOUS BLOOD PH 7.26 (7.32-7.43)
--- NOTE | 2017-06-24 22:38 | CP.PCM.CON ---
History of Present Illness - History of Present Illness History of Present Illness: Surgery: Dr. Presley CC: abd pain HPI: 56F w. pmh of hirschprung, hyperlipidemia, and anxiety presents to ED w. abd pain. She states that she has been having intermittent stabbing abd pain since May 30. She states that the pain is unrelated to diet. She denie N/V, but she reports several episodes of diarrhea. She states that since May 30 she has gone through 4 packs of depends, 20 depends/pack. She states that the diarrhea is non-bloody. She denies fever or chills. In ED she had CT done which showed findings concerning for SBO/ileus for which surgery was consulted. PMH: see above PSH: hirschprung surgery, L ovarian cyst, appendix Meds: MAR reviewed NKDA Social: +tobacc, no ETOH/drugs Fhx: non-contributory Review of Systems - Review of Systems All systems: reviewed and no additional remarkable complaints except (HPI) Past Patient History - Infectious Disease Hx of Infectious Diseases: None - Tetanus Immunizations Tetanus Immunization: Up to Date - Past Social History Smoking Status: Current Some Days Smoker - CARDIAC Hx Hypercholesterolemia: Yes - PULMONARY Hx Respiratory Disorders: No - NEUROLOGICAL Hx Neurological Disorder: No - HEENT Hx HEENT Problems: No - RENAL Hx Chronic Kidney Disease: No - ENDOCRINE/METABOLIC Hx Endocrine Disorders: No - HEMATOLOGICAL/ONCOLOGICAL Hx Blood Disorders: No - INTEGUMENTARY Hx Dermatological Problems: No - MUSCULOSKELETAL/RHEUMATOLOGICAL Hx Back Pain: Yes - GASTROINTESTINAL Hx Gastrointestinal Disorders: Yes Other/Comment: UC - GENITOURINARY/GYNECOLOGICAL Hx Genitourinary Disorders: Yes Hx Uterine Cancer: Yes - PSYCHIATRIC Hx Anxiety: Yes Hx Post Traumatic Stress Disorder: Yes Hx Substance Use: No - SURGICAL HISTORY Other/Comment: colon polyp removed Meds Allergies/Adverse Reactions: Allergies Allergy/AdvReac Type Severity Reaction Status Date / Time seafood Allergy ITCHING Uncoded 06/24/17 16:19 Physical Exam - Constitutional Appears: Non-toxic, No Acute Distress - Head Exam Head Exam: ATRAUMATIC, NORMOCEPHALIC - Eye Exam Eye Exam: EOMI. absent: Scleral icterus - ENT Exam ENT Exam: Mucous Membranes Moist, Normal External Ear Exam - Neck Exam Neck exam: Positive for: Full Rom - Respiratory Exam Respiratory Exam: NORMAL BREATHING PATTERN. absent: Accessory Muscle Use, Respiratory Distress - GI/Abdominal Exam GI & Abdominal Exam: Soft. absent: Distended, Firm, Guarding, Rebound, Rigid, Tenderness - Extremities Exam Extremities exam: Negative for: calf tenderness, pedal edema - Neurological Exam Neurological exam: Alert, Oriented x3 - Psychiatric Exam Psychiatric exam: Normal Affect, Normal Mood Results - Vital Signs Recent Vital Signs: Last Vital Signs Temp 97.9 F 06/24/17 16:22 Pulse 88 06/24/17 16:22 Resp 19 06/24/17 16:22 BP 115/82 06/24/17 16:22 Pulse Ox 97 06/24/17 16:22 - Labs Result Diagrams: 06/24/17 17:40 06/24/17 17:40 - Imaging and Cardiology CT scan - abdomen Status: Image reviewed by me, Report reviewed by me Assessment & Plan - Assessment and Plan (Free Text) Assessment: 56F w. abd pain, likely 2/2 enteritis Plan: -NPO -IVF -F/U stool Cxs -serial abd exams -d/w attending Zemaitis PGY3
[2017-06-25] MEDS ORDERED: DiphenhydrAMINE 50 mg/ml Inj IVP ONE (00:51)
[2017-06-25] MEDS: Sodium Chloride 0.9% 1,000 ML IV STA ×2 (02:29→05:18)
--- NOTE | 2017-06-26 04:21 | HP ---
HISTORY OF PRESENT ILLNESS: The patient is a 56-year-old, who states that she was born with Hirschsprung's disease. At a very early age, she had surgery done. She has been having intermittent diarrhea. She had a similar episode a couple of years ago for diarrhea, she has no control. She states watery stool comes out of her. She went to her PMD who gave Flagyl with no significant relief. Denies any abdominal pain. Does have chronic back pain, chronic neck pain and history of depression. PAST MEDICAL HISTORY: Otherwise, her past medical history is significant for, 1. Hyperlipidemia. 2. Anxiety disorder. 3. History of left ovarian cystectomy. 4. History of appendectomy. SOCIAL HISTORY: She lives with her mom, actively smokes, denies alcohol use. ALLERGIES: PATIENT IS ALLERGIC TO SEAFOODS. MEDICATIONS AT HOME: She is on Dilaudid 4 mg three times a day, cyclobenzaprine 10 mg daily, Zoloft 100 mg daily, omeprazole 40 mg daily, Exalgo 16 mg daily, zolpidem 20 mg at bedtime, Klonopin 1 mg q.i.d., Ativan 1 mg t.i.d., atorvastatin 20 mg daily, aspirin 81 mg daily. REVIEW OF SYSTEMS: Significant for diarrhea. She had 3 watery bowel movements this morning. PHYSICAL EXAMINATION: GENERAL: She is awake, alert, oriented, communicative, ambulatory. VITAL SIGNS: She is afebrile, pulse 76, respirations 20, blood pressure 104/62. LUNGS: Bilateral good airflow. No rhonchi or crackles. HEART: S1 and S2 audible. ABDOMEN: Soft. Slight right lower quadrant and left lower quadrant discomfort. NEUROLOGIC: She is awake, alert, oriented, and communicative. LABORATORY EXAM: WBC is 8.8, hemoglobin 10.7, hematocrit 38, platelets 206. PT 11.4, INR 1. Chemistry: Sodium 143, potassium 3.7, chloride 102, CO2 of 29. BUN 13, creatinine 0.8. Blood sugar of 70. LFTs are within normal limits. AST 39, ALT 72, total protein 8.8. Urinalysis is unremarkable. She had a CT scan of the abdomen and pelvis done that shows marked small bowel dilatation, could be due to small bowel obstruction versus IBS. ASSESSMENT: 1. Probably gastroenteritis. 2. History of Hirschsprung disease. 3. Chronic degenerative disk disease. 4. Hyperlipidemia. 5. Anxiety disorder. PLAN: We will keep patient on clear liquid, IV fluids, Zofran as needed. GI consult by Dr. Payne has been requested. Candice Alcazar MD
[2017-06-26 06:42] LABS: EOS % 0.5 % (1.5-5.0); GRAN # 4.76 (1.4-6.5); GRAN % 83.9 % (50.0-68.0); HEMOGLOBIN 11.7 g/dL (12.0-16.0); LYMPH # 0.8 (1.2-3.4); LYMPH % 13.8 % (22.0-35.0); MEAN CELL VOLUME 97.5 fl (80.0-105.0); MEAN CORPUSCULAR HEMOGLOBIN 32.2 pg (25.0-35.0); MEAN CORPUSCULAR HGB CONC 33.1 g/dl (31.0-37.0); MEAN PLATELET VOLUME 10.1 fl (7.0-11.0); MONO # 0.1 (0.1-0.6); MONO % 1.8 % (1.0-6.0); RBC 3.63 10^6/uL (3.5-6.1); RED CELL DISTRIBUTION WIDTH 12.6 % (11.5-14.5); WHITE BLOOD COUNT 5.7 10^3/ul (4.5-11.0)
[2017-06-26 07:09] LABS: ALB/GLOB RATIO 1.2 (1.1-1.8); ALT/SGPT 28 U/L (7-56); AST/SGOT 43 U/L (14-36); BLOOD UREA NITROGEN 10 mg/dL (7-21); CALCIUM 9.2 mg/dL (8.4-10.5); GFR AFRICAN-AMERICAN > 60; GFR NON-AFRICAN AMERICAN > 60
--- NOTE | 2017-06-26 08:51 | CP.PCM.PN ---
Subjective - Date & Time of Evaluation Date of Evaluation: 06/26/17 Time of Evaluation: 08:47 - Subjective Subjective: Surgery Progress Note: Patient seen and examined at bedside. No acute events overnight. Denies fever, chills, nausea vomiting. Reports mild abdominal discomfort. Tolerating CLD well. Objective - Vital Signs/Intake and Output Vital Signs (last 24 hours): Temp Pulse Resp BP Pulse Ox 99.0 F 96 H 22 138/84 92 L 06/26/17 07:30 06/26/17 07:30 06/26/17 07:30 06/26/17 07:30 06/26/17 07:30 Intake and Output: 06/26/17 06/26/17 06:59 18:59 Intake Total 900 Balance 900 - Medications Medications: Current Medications Acetaminophen (Tylenol 325mg Tab) 650 mg PO Q4H PRN PRN Reason: Pain, Mild (1-3) Aspirin (Aspirin Chewable) 81 mg PO DAILY [facility] Atorvastatin Calcium (Lipitor) 20 mg PO DAILY [facility] Last Admin: 06/25/17 11:38 Dose: 20 mg Hydromorphone HCl (Dilaudid) 4 mg PO TID PRN PRN Reason: Pain, moderate (4-7) Last Admin: 06/26/17 07:50 Dose: 4 mg Lorazepam (Ativan) 1 mg PO TID PRN; Protocol PRN Reason: Anxiety Last Admin: 06/25/17 20:03 Dose: 1 mg Nicotine (Nicoderm Cq) 1 patch TD DAILY [facility] Ondansetron HCl (Zofran Inj) 4 mg IVP Q6H PRN PRN Reason: Nausea/Vomiting Pantoprazole Sodium (Protonix Inj) 40 mg IVP DAILY [facility] Sertraline HCl (Zoloft) 100 mg PO DAILY [facility] Last Admin: 06/25/17 11:26 Dose: 100 mg Zolpidem Tartrate (Ambien) 10 mg PO HS PRN; Protocol PRN Reason: Insomnia - Labs Labs: 06/26/17 06:20 06/26/17 06:20 PT 11.4 SECONDS (9.4-12.5) 06/24/17 17:40 INR 1.00 (0.93-1.08) 06/24/17 17:40 APTT 31.0 Seconds (25.1-36.5) 06/24/17 17:40 - Constitutional Appears: Non-toxic, No Acute Distress - Head Exam Head Exam: ATRAUMATIC, NORMOCEPHALIC - Eye Exam Eye Exam: EOMI, PERRL. absent: Conjunctival injection, Scleral icterus Pupil Exam: NORMAL ACCOMODATION, PERRL - ENT Exam ENT Exam: Mucous Membranes Moist - Neck Exam Neck Exam: Full ROM - Respiratory Exam Respiratory Exam: Clear to Ausculation Bilateral, NORMAL BREATHING PATTERN. absent: Chest Wall Tenderness, Rhonchi, Wheezes - Cardiovascular Exam Cardiovascular Exam: RRR, +S1, +S2. absent: Murmur - GI/Abdominal Exam GI & Abdominal Exam: Soft, Tenderness, Normal Bowel Sounds. absent: Organomegaly, Rebound - Extremities Exam Extremities Exam: Normal Inspection. absent: Calf Tenderness, Pedal Edema - Back Exam Back Exam: NORMAL INSPECTION - Neurological Exam Neurological Exam: Alert, Awake, Oriented x3 - Psychiatric Exam Psychiatric exam: Normal Affect, Normal Mood - Skin Skin Exam: Dry, Normal Color, Warm Assessment and Plan - Assessment and Plan (Free Text) Assessment: 56F w. abd pain, likely 2/2 enteritis: -CLD. Advance diet as tolerated. -IVF -C diff neg. F/U stool Cxs -serial abd exams -will discuss with attending
[2017-06-26] MEDS ORDERED: Apap-Butalbital-Caffeine 325-50-40mg Tab PO PRN ×2 (12:07→14:00)
[2017-06-26 12:32] VITALS: RESP 22
[2017-06-26] MEDS ORDERED: Apap-Butalbital-Caffeine 325-50-40mg Tab PO ONE (13:47)
[2017-06-26] MEDS ORDERED: Apap-Butalbital-Caffeine 325-50-40mg Tab PO SCH (14:00)
--- NOTE | 2017-06-26 15:52 | CP.PCM.PN ---
<Nidhi Colon - Last Filed: 06/26/17 15:55> Subjective - Date & Time of Evaluation Date of Evaluation: 06/26/17 Time of Evaluation: 10:20 - Subjective Subjective: Seen and examined at the bedside earlier today, chart review.patient denies any episodes of diarrhea, no witness diarrhea as per nursing staff. As per nursing staff patient is noncompliant with clear liquids. Patient denies nausea, vomiting, or abdominal pain Objective - Vital Signs/Intake and Output Vital Signs (last 24 hours): Temp Pulse Resp BP Pulse Ox 99.0 F 96 H 22 138/84 92 L 06/26/17 07:30 06/26/17 07:30 06/26/17 07:30 06/26/17 07:30 06/26/17 07:30 Intake and Output: 06/26/17 06/26/17 06:59 18:59 Intake Total 900 480 Balance 900 480 - Medications Medications: Current Medications Acetaminophen (Tylenol 325mg Tab) 650 mg PO Q4H PRN PRN Reason: Pain, Mild (1-3) Acetaminophen/Butalbital/Caffeine (Fioricet) 2 tab PO Q8 PRN PRN Reason: Migraine headache Aspirin (Aspirin Chewable) 81 mg PO DAILY [facility] Last Admin: 06/26/17 09:34 Dose: 81 mg Atorvastatin Calcium (Lipitor) 20 mg PO DAILY [facility] Last Admin: 06/26/17 09:34 Dose: 20 mg Hydromorphone HCl (Dilaudid) 4 mg PO TID PRN PRN Reason: Pain, moderate (4-7) Last Admin: 06/26/17 07:50 Dose: 4 mg Lorazepam (Ativan) 1 mg PO TID PRN; Protocol PRN Reason: Anxiety Last Admin: 06/26/17 09:02 Dose: 1 mg Nicotine (Nicoderm Cq) 1 patch TD DAILY [facility] Ondansetron HCl (Zofran Inj) 4 mg IVP Q6H PRN PRN Reason: Nausea/Vomiting Pantoprazole Sodium (Protonix Inj) 40 mg IVP DAILY [facility] Last Admin: 06/26/17 09:34 Dose: 40 mg Sertraline HCl (Zoloft) 100 mg PO DAILY [facility] Last Admin: 06/26/17 09:34 Dose: 100 mg Zolpidem Tartrate (Ambien) 10 mg PO HS PRN; Protocol PRN Reason: Insomnia - Labs Labs: 06/26/17 06:20 06/26/17 06:20 PT 11.4 SECONDS (9.4-12.5) 06/24/17 17:40 INR 1.00 (0.93-1.08) 06/24/17 17:40 APTT 31.0 Seconds (25.1-36.5) 06/24/17 17:40 - Constitutional Appears: No Acute Distress - Head Exam Head Exam: NORMOCEPHALIC - Eye Exam Eye Exam: Normal appearance. absent: Scleral icterus - ENT Exam ENT Exam: Mucous Membranes Moist - Neck Exam Neck Exam: Normal Inspection - Respiratory Exam Respiratory Exam: NORMAL BREATHING PATTERN. absent: Respiratory Distress - Cardiovascular Exam Cardiovascular Exam: +S1, +S2 - GI/Abdominal Exam GI & Abdominal Exam: Soft, Normal Bowel Sounds. absent: Guarding, Tenderness, Rebound - Extremities Exam Extremities Exam: absent: Calf Tenderness, Pedal Edema - Neurological Exam Neurological Exam: Alert, Awake, Oriented x3 - Skin Skin Exam: Dry, Warm Assessment and Plan - Assessment and Plan (Free Text) Assessment: Assessment: Resolved bowel obstruction Diarrhea, C. difficile negative, probable gastroenteritis History of Hirschsprung's disease Anxiety Plan: Advance diet to low fiber, lactose free Continue PPI Discussed with patient she can take probiotics, will start , see med orders From GI point of view patient can be discharged home if tolerating diet and medically stable, discussed with patient and she will follow up with her GI doctor, Dr. Villa. Patient was also told to avoid high-fiber foods initially and to consume lactose free low residual diet,when symptoms improve can gradually introduce to diet, will ask dietitian to see patient. Seen and discussed with Dr. Payne. <Leda Payne V - Last Filed: 06/26/17 22:11> Objective - Vital Signs/Intake and Output Vital Signs (last 24 hours): Temp Pulse Resp BP Pulse Ox 99.7 F H 42 L 22 147/119 H 99 06/26/17 14:00 06/26/17 14:00 06/26/17 14:00 06/26/17 14:00 06/26/17 14:00 Intake and Output: 06/26/17 06/27/17 18:59 06:59 Intake Total 480 Balance 480 - Medications Medications: Current Medications Acetaminophen (Tylenol 325mg Tab) 650 mg PO Q4H PRN PRN Reason: Pain, Mild (1-3) Acetaminophen/Butalbital/Caffeine (Fioricet) 2 tab PO Q8 [facility] Aspirin (Aspirin Chewable) 81 mg PO DAILY [facility] Last Admin: 06/26/17 09:34 Dose: 81 mg Atorvastatin Calcium (Lipitor) 20 mg PO DAILY [facility] Last Admin: 06/26/17 09:34 Dose: 20 mg Hydromorphone HCl (Dilaudid) 4 mg PO TID PRN PRN Reason: Pain, moderate (4-7) Last Admin: 06/26/17 21:34 Dose: 4 mg Ceftriaxone Sodium (Rocephin 1 Gram Ivpb) 1 gm in 100 mls @ 100 mls/hr IVPB DAILY [facility] PRN Reason: Protocol Stop: 07/05/17 17:29 Last Admin: 06/26/17 19:02 Dose: 100 mls/hr Lactobacillus Acidophilus (Bacid Acidophilus) 1 cap PO BID [facility] Last Admin: 06/26/17 19:01 Dose: 1 cap Lorazepam (Ativan) 1 mg PO TID PRN; Protocol PRN Reason: Anxiety Last Admin: 06/26/17 19:42 Dose: 1 mg Nicotine (Nicoderm Cq) 1 patch TD DAILY [facility] Last Admin: 06/26/17 21:33 Dose: 1 patch Ondansetron HCl (Zofran Inj) 4 mg IVP Q6H PRN PRN Reason: Nausea/Vomiting Pantoprazole Sodium (Protonix Inj) 40 mg IVP DAILY [facility] Last Admin: 06/26/17 09:34 Dose: 40 mg Sertraline HCl (Zoloft) 100 mg PO DAILY [facility] Last Admin: 06/26/17 09:34 Dose: 100 mg Zolpidem Tartrate (Ambien) 10 mg PO HS PRN; Protocol PRN Reason: Insomnia Last Admin: 06/26/17 21:34 Dose: 10 mg - Labs Labs: PT 11.4 SECONDS (9.4-12.5) 06/24/17 17:40 INR 1.00 (0.93-1.08) 06/24/17 17:40 APTT 31.0 Seconds (25.1-36.5) 06/24/17 17:40 Attending/Attestation - Attestation I have personally seen and examined this patient.: Yes I have fully participated in the care of the patient.: Yes I have reviewed all pertinent clinical information, including history, physical exam and plan: Yes Notes (Text): This is an addendum to GI progress report dictated by Nidhi Colon APN.The patient was seen and examined earlier. Medical records, lab studies, imagings were reviewed. Last 24 hours events reviewed. Agreed with the above treatment plan as outlined in Nidhi Colon APN's notes the with the addition of the following No further episodes of diarrhea today C. difficile negative Patient is being followed by Dr. Villa Metal Fabrication Supervisor as an outpatient Advance the diet to low residue soft diet 06/26/17 22:10
[2017-06-26] MEDS ORDERED: cefTRIAXone 1 gm 1 GM/100 ML BAG IVPB SCH (17:28)
[2017-06-26 17:50] VITALS: TEMP 99.7; O2SAT 99
[2017-06-26] MEDS: Lactobacillus Acidophilus 500 MU Cap PO SCH (19:01)
--- NOTE | 2017-06-26 21:36 | PN ---
DATE: SUBJECTIVE: Patient is 56 years old, seen and examined, complained of headache, complained of decreased appetite, did not have loose bowel movement since morning. PHYSICAL EXAMINATION: VITAL SIGNS: She has a temperature of 100.4, although it is not documented; pulse 112; respiration 20; blood pressure 91/59. LUNGS: Bilateral fair airflow. No rhonchi or crackle. HEART: S1, S2 audible. ABDOMEN: Soft, nontender. No rebound, no guarding. NEUROLOGIC: She is awake, alert, oriented, able to communicate. LABORATORY DATA: WBC is 5.7, hemoglobin 11.7, hematocrit 35.4, platelet of 145. Chemistry: Sodium 145, potassium 3.7, chloride 110, CO2 of 26, BUN 10, creatinine 0.8, blood sugar of 91. ASSESSMENT: 1. Headache, migraine versus withdrawal. 2. Nicotine addiction. 3. Diarrhea, seems to be resolving. 4. Anxiety disorder. 5. History of Hirschsprung disease. 6. Chronic degenerative disk disease. 7. Hyperlipidemia. PLAN: We will continue on IV fluid. I offered the patient I will give her Imitrex, but she states it has never worked in the past. She is demanding for Fiorinal, but we do not have formulary in hospital. I offered her Fioricet; she said that does not work also. Nurse notified me that patient has fever, ordered for Tylenol, but patient refused to take. She states Tylenol has never worked for her in the past. Later on, she did agree to take Fioricet. We will advance her diet with low-fiber diet. Since patient spiked fever, we will order for blood culture and urine culture. We will monitor her closely. We will watch for another 24 hours, request for neuro consult for headache, and Dr. Doll for consult for spike of fever. Candice Alcazar MD
--- NOTE | 2017-06-26 21:41 | CON ---
DATE: 06/26/2017 LOCATION: Patient was seen earlier today in [facility], bed 1. CHIEF COMPLAINT: Abdominal discomfort times several days. HISTORY OF PRESENT ILLNESS: This is a 56-year-old female with history of Hirschsprung disease, pseudomembranous colitis, hyperlipidemia, fibromyalgia, uterine cancer, anxiety, colon polyps, history of left ovarian cyst removal, and appendectomy. She is allergic to seafood and was admitted with the diagnosis of small bowel obstruction based on a CAT scan finding. Patient has some pelvic pain and questionable dysuria or frequency. No headaches or blurred vision. No nausea or vomiting at this time; she did have nausea earlier. No fevers. PAST MEDICAL HISTORY: Significant for Hirschsprung disease, pseudomembranous colitis, hyperlipidemia, uterine cancer, anxiety, colon polyps, fibromyalgia. PAST SURGICAL HISTORY: Significant for left ovarian cyst removal and appendectomy. ALLERGIES: PATIENT IS ALLERGIC TO SEAFOOD. MEDICATIONS: At home include hydromorphone, cyclobenzaprine, sertraline, omeprazole, Ambien, clonazepam, lorazepam, atorvastatin, and aspirin. PHYSICAL EXAMINATION: GENERAL: Patient is in bed, no acute distress, answering questions appropriately. VITAL SIGNS: Temperature of 99, heart rate was up to 112, respiratory rate was 22, 92% saturation on room air. HEENT: Unremarkable. NECK: Supple. LUNGS: Have decreased breath sounds. HEART: Normal S1 and S2. ABDOMEN: Soft, nontender. Mild tenderness. No rebound or guarding. No mass. LABORATORY DATA: Revealed white count of 5.7, hemoglobin of 11, platelets of 145. Chemistries reveal a BUN of 10, creatinine of 0.8. Urinalysis is noted. The LFTs are, AST is elevated at 43. Urinalysis is noted, leukocyte esterase trace. Microbiology reveals the stool C. difficile antigen and toxin are both negative. There is gram-negative su in the urine. Patient had a CAT scan of the abdomen and pelvis, which shows small bowel obstruction and ileus and blood cultures are pending. ASSESSMENT AND PLAN: This is a 56-year-old female with past history of Hirschsprung, history of pseudomembranous colitis, hyperlipidemia, fibromyalgia, uterine cancer, anxiety, colon polyp, ovarian cyst removal, appendectomy. She is allergic to seafood and there is now questionable urinary symptoms, did have nausea, presenting with tachycardia, dyspnea, hypoxia. 1. Severe sepsis with small bowel obstruction and ileus or enteritis and gram-negative su urinary tract infection. We will treat the patient with ceftriaxone given the identification of gram-negative su and follow clinically the small bowel obstruction and ileus and blood culture results and we will also order a human immunodeficiency virus test because of her age and we will make further recommendations upon availability of initial results. Ian Doll MD
--- NOTE | 2017-06-26 23:16 | CT ---
EXAM: CT Head Without Intravenous Contrast EXAM DATE/TIME: 06/26/2017 6:41 PM CLINICAL HISTORY: The patient age is 56 years old and is female; Pain; Headache; Additional info: Headach Facility exam id and description: Ct heads head w/o contrast TECHNIQUE: Axial computed tomography images of the head/brain without intravenous contrast. All CT scans at this facility use one or more dose reduction techniques, viz.: automated exposure control; ma/kV adjustment per patient size (including targeted exams where dose is matched to indication; i.e. head); or iterative reconstruction technique. Coronal and sagittal reformatted images were created and reviewed. COMPARISON: CT - HEAD W/O CONTRAST 2017-03-25 11:46 FINDINGS: Brain: The white-whitmore differentiation is preserved demonstrating no acute territorial type infarct. No acute intracranial hemorrhage is seen. No significant white matter disease visualized. Midline shift: There is no midline shift. Ventricles: No ventriculomegaly. Bones/joints: The calvarium demonstrates no evidence for a depressed fracture. Soft tissues: No acute abnormality. Sinuses: A small mucous retention cyst or polyp is visualized within the left maxillary sinus. Mastoid air cells: No mastoid effusion. Other:There is atherosclerotic calcification of the cavernous internal carotid arteries. IMPRESSION: 1. No acute intracranial abnormality. 2. Paranasal sinus disease is noted above.
[2017-06-27] MEDS ORDERED: Apap-Butalbital-Caffeine 325-50-40mg Tab PO STA (01:13)
--- NOTE | 2017-06-27 01:29 | CP.PCM.PN ---
Subjective - Date & Time of Evaluation Date of Evaluation: 06/27/17 Time of Evaluation: 01:12 - Subjective Subjective: Patient was seen at bedside. She complained of migraine headache. Has no other complaints. Pertinent medical record was reviewed. BP repeated:108/49. This 56 year old white woman was admitted with diarrhoea/gastroenteritis. Has PMH of depression, chronic back pain, DJD,HLD,anxiety,Ulcerative colitis( As per patrient)/Hirschprung . Objective - Vital Signs/Intake and Output Vital Signs (last 24 hours): Temp Pulse Resp BP Pulse Ox 99.7 F H 42 L 22 147/119 H 99 06/26/17 14:00 06/26/17 14:00 06/26/17 14:00 06/26/17 14:00 06/26/17 14:00 Intake and Output: 06/26/17 06/27/17 18:59 06:59 Intake Total 480 Balance 480 - Medications Medications: Current Medications Acetaminophen (Tylenol 325mg Tab) 650 mg PO Q4H PRN PRN Reason: Pain, Mild (1-3) Acetaminophen/Butalbital/Caffeine (Fioricet) 2 tab PO Q8 SOUTH Aspirin (Aspirin Chewable) 81 mg PO DAILY [facility] Last Admin: 06/26/17 09:34 Dose: 81 mg Atorvastatin Calcium (Lipitor) 20 mg PO DAILY [facility] Last Admin: 06/26/17 09:34 Dose: 20 mg Hydromorphone HCl (Dilaudid) 4 mg PO TID PRN PRN Reason: Pain, moderate (4-7) Last Admin: 06/26/17 21:34 Dose: 4 mg Ceftriaxone Sodium (Rocephin 1 Gram Ivpb) 1 gm in 100 mls @ 100 mls/hr IVPB DAILY [facility] PRN Reason: Protocol Stop: 07/05/17 17:29 Last Admin: 06/26/17 19:02 Dose: 100 mls/hr Lactobacillus Acidophilus (Bacid Acidophilus) 1 cap PO BID [facility] Last Admin: 06/26/17 19:01 Dose: 1 cap Lorazepam (Ativan) 1 mg PO TID PRN; Protocol PRN Reason: Anxiety Last Admin: 06/26/17 19:42 Dose: 1 mg Nicotine (Nicoderm Cq) 1 patch TD DAILY [facility] Last Admin: 06/26/17 21:33 Dose: 1 patch Ondansetron HCl (Zofran Inj) 4 mg IVP Q6H PRN PRN Reason: Nausea/Vomiting Pantoprazole Sodium (Protonix Inj) 40 mg IVP DAILY [facility] Last Admin: 06/26/17 09:34 Dose: 40 mg Sertraline HCl (Zoloft) 100 mg PO DAILY [facility] Last Admin: 06/26/17 09:34 Dose: 100 mg Zolpidem Tartrate (Ambien) 10 mg PO HS PRN; Protocol PRN Reason: Insomnia Last Admin: 06/26/17 21:34 Dose: 10 mg - Labs Labs: PT 11.4 SECONDS (9.4-12.5) 06/24/17 17:40 INR 1.00 (0.93-1.08) 06/24/17 17:40 APTT 31.0 Seconds (25.1-36.5) 06/24/17 17:40 Micro Results 06/24/17 18:11 Urine,Clean Catch Urine Culture - Preliminary Gram Negative [place] 06/24/17 18:11 Stool C. difficile Antigen & Toxin A,B (M - Final Most Recent Lab Values WBC 5.7 10^3/ul (4.5-11.0) D 06/26/17 06:20 RBC 3.63 10^6/uL (3.5-6.1) 06/26/17 06:20 Hgb 11.7 g/dL (12.0-16.0) L 06/26/17 06:20 Hct 35.4 % (36.0-48.0) L 06/26/17 06:20 MCV 97.5 fl (80.0-105.0) 06/26/17 06:20 MCH 32.2 pg (25.0-35.0) 06/26/17 06:20 MCHC 33.1 g/dl (31.0-37.0) 06/26/17 06:20 RDW 12.6 % (11.5-14.5) 06/26/17 06:20 Plt Count 145 10^3/uL (120.0-450.0) 06/26/17 06:20 MPV 10.1 fl (7.0-11.0) 06/26/17 06:20 Gran % 83.9 % (50.0-68.0) H 06/26/17 06:20 Lymph % (Auto) 13.8 % (22.0-35.0) L 06/26/17 06:20 [place] % (Auto) 1.8 % (1.0-6.0) 06/26/17 06:20 Eos % (Auto) 0.5 % (1.5-5.0) L 06/26/17 06:20 Baso % (Auto) 0.0 % (0.0-3.0) 06/26/17 06:20 Gran # 4.76 (1.4-6.5) 06/26/17 06:20 Lymph # (Auto) 0.8 (1.2-3.4) L 06/26/17 06:20 [place] # (Auto) 0.1 (0.1-0.6) 06/26/17 06:20 Eos # (Auto) 0.0 (0.0-0.7) 06/26/17 06:20 Baso # (Auto) 0.00 K/mm3 (0.0-2.0) 06/26/17 06:20 PT 11.4 SECONDS (9.4-12.5) 06/24/17 17:40 INR 1.00 (0.93-1.08) 06/24/17 17:40 APTT 31.0 Seconds (25.1-36.5) 06/24/17 17:40 pO2 57 mm/Hg (30-55) H 06/24/17 21:53 VBG pH 7.26 (7.32-7.43) L 06/24/17 21:53 VBG pCO2 62.0 (40-60) H 06/24/17 21:53 VBG HCO3 27.8 mmol/l (21-28) 06/24/17 21:53 VBG Total CO2 29.7 mmol.L (22-28) H 06/24/17 21:53 VBG O2 Sat (Calc) 90.8 % (40-65) H 06/24/17 21:53 VBG Base Excess -0.6 mmol/L (0.0-2.0) L 06/24/17 21:53 VBG Potassium 3.5 mmol/L (3.6-5.2) L 06/24/17 21:53 Sodium 140.0 mmol/L (132-148) 06/24/17 21:53 Chloride 108.0 mmol/L (98-107) H 06/24/17 21:53 Glucose 76 mg/dl (65-105) 06/24/17 21:53 Lactate 1.2 mmol/L (0.7-2.1) 06/24/17 21:53 FiO2 21.0 % 06/24/17 21:53 Sodium 145 mmol/L (132-148) 06/26/17 06:20 Potassium 3.7 mmol/L (3.6-5.0) 06/26/17 06:20 Chloride 110 mmol/L (98-107) H 06/26/17 06:20 Carbon Dioxide 26 mmol/L (21-33) 06/26/17 06:20 Anion Gap 13 (10-20) 06/26/17 06:20 BUN 10 mg/dL (7-21) 06/26/17 06:20 Creatinine 0.8 mg/dl (0.7-1.2) 06/26/17 06:20 Est GFR ( Amer) > 60 06/26/17 06:20 Est GFR (Non-Af Amer) > 60 06/26/17 06:20 Random Glucose 91 mg/dL (70-110) 06/26/17 06:20 Calcium 9.2 mg/dL (8.4-10.5) 06/26/17 06:20 Magnesium 2.2 mg/dL (1.7-2.2) 06/24/17 17:40 Total Bilirubin 0.2 mg/dL (0.2-1.3) 06/26/17 06:20 AST 43 U/L (14-36) H 06/26/17 06:20 ALT 28 U/L (7-56) 06/26/17 06:20 Alkaline Phosphatase 72 U/L (38-126) 06/26/17 06:20 Lactate Dehydrogenase 473 U/L (333-699) 06/24/17 17:40 Total Creatine Kinase 66 U/L (35-230) 06/24/17 17:40 Troponin I < 0.01 ng/mL 06/24/17 17:40 Total Protein 7.2 g/dL (5.8-8.3) 06/26/17 06:20 Albumin 4.0 g/dL (3.0-4.8) 06/26/17 06:20 Globulin 3.3 gm/dL 06/26/17 06:20 Albumin/Globulin Ratio 1.2 (1.1-1.8) 06/26/17 06:20 Lipase 120 U/L (23-300) 06/24/17 17:40 Venous Blood Potassium 3.5 mmol/L (3.6-5.2) L 06/24/17 21:53 Urine Color Yellow (YELLOW) 06/24/17 18:11 Urine Appearance Clear (CLEAR) 06/24/17 18:11 Urine pH 6.0 (4.7-8.0) 06/24/17 18:11 Ur Specific [place] <= 1.005 (1.005-1.035) 06/24/17 18:11 Urine Protein Negative mg/dL (<30 mg/dL) 06/24/17 18:11 Urine Glucose (UA) Negative mg/dL (NEGATIVE) 06/24/17 18:11 Urine Ketones Negative mg/dL (NEGATIVE) 06/24/17 18:11 Urine Blood Negative (NEGATIVE) 06/24/17 18:11 Urine Nitrate Negative (NEGATIVE) 06/24/17 18:11 Urine Bilirubin Negative (NEGATIVE) 06/24/17 18:11 Urine Urobilinogen 0.2 E.U./dL (<1 E.U./dL) 06/24/17 18:11 Ur Leukocyte Esterase Trace [place]/uL (NEGATIVE) H 06/24/17 18:11 Urine RBC Negative /hpf (0-2) 06/24/17 18:11 Urine WBC 1 - 3 /hpf (0-6) 06/24/17 18:11 Ur Epithelial Cells 3 - 4 /hpf (0-5) 06/24/17 18:11 - Constitutional Appears: Well, No Acute Distress - Head Exam Head Exam: ATRAUMATIC, NORMAL INSPECTION, NORMOCEPHALIC Additional comments: Ambulating. Found her in lobby. - Eye Exam Eye Exam: Normal appearance - ENT Exam ENT Exam: Normal External Ear Exam - Neck Exam Neck Exam: Normal Inspection - Respiratory Exam Respiratory Exam: NORMAL BREATHING PATTERN - Cardiovascular Exam Cardiovascular Exam: absent: JVD - GI/Abdominal Exam GI & Abdominal Exam: absent: Distended - Rectal Exam Rectal Exam: Deferred - Exam Additional comments: Deferred. - Extremities Exam Extremities Exam: Normal Inspection - Back Exam Back Exam: NORMAL INSPECTION - Neurological Exam Neurological Exam: Alert, Awake, Oriented x3 - Psychiatric Exam Psychiatric exam: Normal Affect, Normal Mood - Skin Skin Exam: Normal Color Assessment and Plan - Assessment and Plan (Free Text) Assessment: Migraine headacehe/. Diarrhoea. Gastroenteritis? Depression. History of back pain. Anxiety. DJD. Plan: Fioricet II PO now. Continue management as per PMD.
[2017-06-27 01:35] VITALS: BP 108/49; PULSE 105
--- NOTE | 2017-06-27 02:26 | CON ---
DATE: HISTORY OF PRESENT ILLNESS: This is a 56-year-old female with a past medical history of hyperlipidemia, anxiety, left ovarian and appendectomy, was born with Hirschsprung's disease and patient had watery stools and Flagyl does not give relief and called in for headache. PAST MEDICAL HISTORY: As above. SOCIAL HISTORY: Does not smoke. Does not drink. REVIEW OF SYSTEMS: Ten-point review of systems was negative. HOME MEDICATIONS: Patient is on Dilaudid, cyclobenzaprine, Zoloft, omeprazole, Zolpidem, Klonopin, atorvastatin, and aspirin. PHYSICAL EXAMINATION: HEENT: Normocephalic, atraumatic. NECK: Supple. NEUROLOGIC: Alert, awake, oriented x3. No aphasia. Cranial nerves II through XII are tested. Pupils reactive. EOM intact. Visual dior full. No facial asymmetry. Tongue midline. Motor examination, moves all the extremities equally. Tone normal. Deep tendon reflexes 1+. Both plantars downgoing. Sensory appears intact. Cerebellar, gait normal. IMPRESSION: Headache. MRI was done in 04/08/2017, which was normal. Patient is feeling better and workup in progress. Continue present management. We will follow up. WBC 8.8, hemoglobin 12.7, hematocrit 38, platelets 206. Sodium 143, potassium 3.7, chloride 102, CO2 29, glucose 70, BUN 13, creatinine 0.8, and recently observed for small bowel obstruction and workup in progress. We will follow up. Jeffrey Quintana MD
[2017-06-27] MEDS: Apap-Butalbital-Caffeine 325-50-40mg Tab PO SCH ×2 (04:12→06:49)
[2017-06-27 07:06] LABS: HEMOGLOBIN 9.4 g/dL (12.0-16.0); MEAN CELL VOLUME 94.8 fl (80.0-105.0); MEAN CORPUSCULAR HEMOGLOBIN 32.4 pg (25.0-35.0); MEAN CORPUSCULAR HGB CONC 34.2 g/dl (31.0-37.0); MEAN PLATELET VOLUME 10.6 fl (7.0-11.0); RBC 2.9 10^6/uL (3.5-6.1); RED CELL DISTRIBUTION WIDTH 12.7 % (11.5-14.5); WHITE BLOOD COUNT 9.5 10^3/ul (4.5-11.0)
[2017-06-27 07:43] LABS: ALB/GLOB RATIO 1.1 (1.1-1.8); ALBUMIN 3.4 g/dL (3.0-4.8); ALT/SGPT 21 U/L (7-56); AST/SGOT 31 U/L (14-36); BLOOD UREA NITROGEN 9 mg/dL (7-21); CALCIUM 9.1 mg/dL (8.4-10.5); GFR AFRICAN-AMERICAN > 60; GFR NON-AFRICAN AMERICAN > 60; HDL CHOLESTEROL 43 mg/dL (29-60)
[2017-06-27 07:51] LABS: LDL CHOLESTEROL 63 mg/dL (0-129)
[2017-06-27] MEDS ORDERED: Potassium Chloride 20 mEq ER Tab PO ONE (08:13)
[2017-06-27] MEDS ORDERED: ceFAZolin 1 gm in NS 1 GM/100 ML BAG IVPB SCH (08:45)
[2017-06-27] MEDS: Lactobacillus Acidophilus 500 MU Cap PO SCH (09:37)
--- NOTE | 2017-06-27 17:09 | CP.PCM.PN ---
Subjective - Date & Time of Evaluation Date of Evaluation: 06/27/17 Time of Evaluation: 09:50 - Subjective Subjective: Seen and examined at the bedside earlier today, chart review. Patient reports having pasty stool this morning, no reports of bleeding. Tolerating oral intake complaints of nausea, vomiting, or abdominal pain. Patient is reported by nursing staff to be noncompliant, patient smoking in the bathroom. Patient expresses that she is going AMA. Objective - Vital Signs/Intake and Output Vital Signs (last 24 hours): Temp Pulse Resp BP Pulse Ox 99.7 F H 105 H 22 108/49 L 99 06/26/17 14:00 06/27/17 01:15 06/26/17 14:00 06/27/17 01:15 06/26/17 14:00 Intake and Output: 06/27/17 06/27/17 06:59 18:59 Intake Total 720 Balance 720 - Labs Labs: 06/27/17 06:20 06/27/17 06:20 PT 11.4 SECONDS (9.4-12.5) 06/24/17 17:40 INR 1.00 (0.93-1.08) 06/24/17 17:40 APTT 31.0 Seconds (25.1-36.5) 06/24/17 17:40 - Constitutional Appears: No Acute Distress - Head Exam Head Exam: NORMOCEPHALIC - Eye Exam Eye Exam: Normal appearance. absent: Scleral icterus - ENT Exam ENT Exam: Mucous Membranes Moist - Respiratory Exam Respiratory Exam: NORMAL BREATHING PATTERN. absent: Respiratory Distress (low below) - Cardiovascular Exam Cardiovascular Exam: +S1, +S2 - GI/Abdominal Exam GI & Abdominal Exam: Soft, Normal Bowel Sounds. absent: Guarding, Tenderness, Rebound - Extremities Exam Extremities Exam: absent: Calf Tenderness, Pedal Edema - Neurological Exam Neurological Exam: Alert, Awake, Oriented x3 - Skin Skin Exam: Dry, Warm Assessment and Plan - Assessment and Plan (Free Text) Assessment: Assessment: Resolved bowel obstruction Diarrhea, C. difficile negative, probable gastroenteritis History of Hirschsprung's disease Anxiety Plan: Low fiber, lactose free Continue PPI continue Probiotics Discussed with lex GARZA, patient states that she will follow up with her GI doctor, Dr. Villa. Seen and discussed with Dr. Payne.
--- NOTE | 2017-06-28 03:30 | DS ---
HOSPITAL COURSE: The patient is a 56-year-old, who was admitted because of intractable diarrhea. She was having watery stools, and her CAT scan shows possible small bowel loop dilatation, suspicion was IBS versus enteritis, so the patient was kept n.p.o., was given IV fluids. The patient does have chronic narcotic dependence, complained of headache, was given Fioricet with some relief. The patient was found to be smoking in the bathroom multiple times, and she was told not to, she got upset and wanted to leave. PHYSICAL EXAMINATION: VITAL SIGNS: Her temperature is 99.7, pulse 105, respirations 22, blood pressure 108/49. LUNGS: Bilateral fair airflow. No rhonchi or crackle. HEART: S1 and S2 audible. ABDOMEN: Soft, nontender. No rebound. No guarding. NEUROLOGIC: She is awake and alert, communicative, ambulatory. LABORATORY EXAM: WBC 9.5, hemoglobin 9.4, hematocrit 27.5, platelets 139. Chemistry: Sodium 143, potassium 3.5, chloride 107, CO2 of 29, BUN 9, creatinine 0.7, blood sugar of 88. ASSESSMENT: 1. Status post gastroenteritis. 2. History of Hirschsprung disease. 3. Hypertension. 4. Hyperlipidemia. 5. Chronic degenerative disk disease. PLAN: The patient was started on IV antibiotics because she was having fever, but this morning she got upset and she signed against medical advice. She is advised to follow with her PMD. Candice Alcazar MD
== END 2017-06-27 11:46 | disposition left against medical advice (07) | DRG 392 ==
LOC: ED 16:09 → ERH 21:53 → 5RNO 23:25 → OBSVTOIN 06-26 15:59
PROVIDERS: ADMIT Internal Medicine; ATTEND Internal Medicine
DX: K52.9 Noninfective gastroenteritis and colitis, unspecified (principal); Q43.1 Hirschsprung's disease; N39.0 Urinary tract infection, site not specified; K56.7 Ileus, unspecified; I10 Essential (primary) hypertension; M51.37 Other intervertebral disc degeneration, lumbosacral region; G43.909 Migraine, unspecified, not intractable, without status migrainosus; M19.90 Unspecified osteoarthritis, unspecified site; E78.5 Hyperlipidemia, unspecified; G89.29 Other chronic pain; F43.10 Post-traumatic stress disorder, unspecified; F17.200 Nicotine dependence, unspecified, uncomplicated; F32.9 Major depressive disorder, single episode, unspecified; M54.9 Dorsalgia, unspecified; Z91.19 Patient's noncompliance with other medical treatment and regimen; Z91.013 Allergy to seafood; Z86.010 Personal history of colon polyps; Z85.42 Personal history of malignant neoplasm of other parts of uterus; Z79.82 Long term (current) use of aspirin

== ENCOUNTER 2018-05-26 14:29 | Outpatient (CLI) | payer MEDICARE | END 2018-05-26 14:30 | disposition home or self-care (01) | LOC: RAD 14:29 ==